=== PATIENT | male | born 1975 | race Caucasian/White ===

== ENCOUNTER 2025-07-11 20:15 | Emergency (ER) | payer OTHER ==
[~2025-07-11] VITALS: Ht 175.3 cm; Wt 83.9 kg
[2025-07-11] MEDS ORDERED: MECLIZINE HCL 25 MG TABLET ONE (21:06)
[2025-07-11] MEDS: MECLIZINE HCL 25 MG TABLET PO ONE (21:14)
[2025-07-11 21:49] LABS: PLATELET COUNT (AUTO) 229 K/uL (150-450); RED BLOOD CELL COUNT(AUTO) 5.25 MIL/uL (4.5-6.0); RED CELL DISTRIBUTION WIDTH 13.1 % (11.5-15.0); WHITE BLOOD COUNT (AUTO) 9.5 K/uL (4.3-11.0)
[2025-07-11 21:58] LABS: ERYTHROCYTE SEDIMENTATION RATE 3 MM/HR (0-15)
[2025-07-11 22:04] LABS: CALCIUM, SERUM 8.9 mg/dL (8.5-10.1); CREATININE 1.1 mg/dL (0.6-1.3); SODIUM SERUM 139.0 mmol/L (136-145); UREA NITROGEN, BLOOD 17.0 mg/dL (7-18)
[2025-07-11 22:09] LABS: ASPARTATE AMINOTRANSFERASE 23.0 U/L (15-37); TOTAL PROTEIN, SERUM 7.2 g/dL (6.4-8.2)
[2025-07-11 22:18] LABS: INR 1.0 (0.91-1.10)
[2025-07-12] MEDS ORDERED: MECL-159 PO (03:01)
[2025-07-12 03:58] VITALS: BP 121/83; TEMP 98; O2SAT 98
== END 2025-07-12 03:59 | disposition home or self-care (01) ==
LOC: ER 20:23
DX: R42 Dizziness and giddiness (principal); R51.9 Headache, unspecified; Z86.2 Personal history of diseases of the blood and blood-forming organs and certain disorders involving the immune mechanism
CPT/HCPCS: 70450; 93005; 85025; 80048; 80076; 85652; 36415 ×2; 85730; 99285; 84484; J8597